=== PATIENT | male | born 1990 | race Caucasian/White ===

== ENCOUNTER 2023-02-11 03:06 | Emergency (ER) | payer MEDICAID, SELFPAY ==
--- NOTE | ~2023-02-11 | XR_ITS ---
EXAMINATION: XR CHEST CLINICAL INFORMATION: Pleuritic chest pain COMPARISON: 02/02/2014 TECHNIQUE: 2 views of the chest were obtained. FINDINGS: The lungs are well expanded. There is no focal consolidation, edema, or effusion. No pneumothorax. The cardiomediastinal silhouette is within normal limits. No acute osseous abnormality. XR/XR chest 2V IMPRESSION: Clear lungs.
[2023-02-11 03:12] VITALS: BP 103/80; PULSE 71; O2SAT 95; BMI 26.6
[2023-02-11 03:19] VITALS: BP 134/78; PULSE 65; RESP 16; O2SAT 97
--- NOTE | 2023-02-11 03:45 | ED_ITS ---
HPI - General Adult General Chief complaint: Upper Respiratory Symptoms Stated complaint: COUGH W/R RIB PAIN X1 WEEK,NO INJURY Time Seen by Provider: 02/11/23 03:16 Source: patient Mode of arrival: EMS Limitations: no limitations History of Present Illness HPI narrative: 32-year-old male presents with chest pain. Patient has been having an infection for approximately 10 days. He tests negative recently for COVID. He did have fever, chills, mucus production without as all abated. All that is left is residual cough with moderate chest pain. The chest pain is worse with deep inspiration and movement. Does not radiate. Patient describes the symptoms as moderate to severe. Prior treatment includes ibuprofen 1200 mg prior to arrival. Related Data Allergies Allergy/AdvReac Type Severity Reaction Status Date / Time bupropion [From WELLBUTRIN] Allergy Intermediate RASH Unverified 08/05/20 15:54 ibuprofen [IBUPROFEN] Allergy Intermediate HIVES Unverified 08/05/20 15:54 Penicillins [PENICILLINS] Allergy Intermediate RASH Unverified 08/05/20 15:54 tramadol [TRAMADOL] Allergy Intermediate HIVES Unverified 08/05/20 15:54 acetaminophen [Tylenol] Allergy Unknown Verified 04/22/19 00:00 penicillin V Allergy Unknown Verified 04/22/19 00:00 Physical Exam ED Vital Signs: Vital Signs - 24 hr 02/11/23 03:19 Pulse Rate 65 Respiratory Rate 16 Blood Pressure 134/78 Pulse Oximetry 97 Oxygen Delivery Method Room Air BMI result Body Mass Index 26.6 GEN: Well developed, no acute distress, alert, oriented HEENT: Normocephalic, atraumatic, normal external ears, nose appears normal, no oropharyngeal edema or exudates Eyes: Normal to appearance Neck: Supple, no lymphadenopathy Respiratory: Talks in complete sentences, no respiratory distress, clear to auscultation bilaterally Cardiovascular: Regular rate and rhythm, no murmurs rubs or gallops Abdomen: Soft, nontender, nondistended, no guarding, no rebound Back: No CVA tenderness Extremities: No clubbing cyanosis or edema Neurologic: No focal neurologic deficits, cranial nerves 2-12 intact, strength is 5/5 bilaterally, gait normal Skin: No rash Course Course Course Narrative: 32-year-old male presents with chest wall pain. This is likely due to persistent cough for 10 days. Has no fevers. Vital signs are normal. Chest x- ray reveals no acute cardiopulmonary disease. Clinically and historically, patient is actually improving. Would recommend Tylenol and ibuprofen as needed for pain and discomfort. Patient is aware this may persist for several days several weeks. May try [id number] cough remedies as needed Medical Decision Making Medical Decision Making [facility] Narrative: 32-year-old male presents with chest wall pain. This is likely due to persistent cough for 10 days. Has no fevers. Vital signs are normal. Chest x- ray reveals no acute cardiopulmonary disease. Clinically and historically, patient is actually improving. Would recommend Tylenol and ibuprofen as needed for pain and discomfort. Patient is aware this may persist for several days sev eral weeks. May try [id number] cough remedies as needed Differential Diagnosis Differential Diagnoses: The differential diagnosis associated with the presentation includes (Strain, sprain, chest wall pain, pleuritic chest pain, bronchitis,) Lab Data [facility] Lab Attestation statement: I reviewed the patient's lab results. COVID negative Independent Interpretation I performed an independent interpretation of an: Plain X-Ray (Chest: No acute cardiopulmonary disease) Discharge Plan Discharge Clinical Impression: Chest pain, pleuritic Patient Disposition: Home, Self-Care Instructions: Chest Pain (ED) Referrals: [facility] [Primary Care Provider] - 5 days
[2023-02-11 03:47] LABS: COVID-19 Test Negative (Negative); IDNOW Serial# 6674DD1D
== END 2023-02-11 04:14 | disposition home or self-care (01) ==
PROVIDERS: Emergency Provider Emergency Medicine
DX: R05.9 Cough, unspecified (principal); R07.81 Pleurodynia; Z20.822 Contact with and (suspected) exposure to COVID-19; Z20.828 Contact with and (suspected) exposure to other viral communicable diseases
CPT/HCPCS: 71046; 87635; 99282; 99283